=== PATIENT | female | born 1930 | race Asian ===

== ENCOUNTER 2018-09-16 10:58 | Emergency (ER) | payer MEDICARE, OTHER ==
[2018-09-16 12:03] LABS: ADD MAN DIFF? NO
[2018-09-16 12:07] LABS: BASOPHILS % 0.5 % (0.0-2.0); EOSINOPHILS # 0.1 10^3/ul (0.0-0.5); EOSINOPHILS % 1.9 % (0.0-7.0); HEMATOCRIT 39.4 % (37.0-47.0); HEMOGLOBIN 12.9 g/dl (12.0-16.0); LYMPHOCYTES # 1.7 10^3/ul (0.8-2.9); LYMPHOCYTES % 27.9 % (15.0-51.0); MEAN CORPUSCULAR HEMOGLOBIN 30.4 pg (29.0-33.0); MEAN CORPUSCULAR HGB CONC 32.7 g/dl (32.0-37.0); MEAN CORPUSCULAR VOLUME 92.9 fl (82.0-101.0); MONOCYTE # 0.5 10^3/ul (0.3-0.9); MONOCYTES % 7.8 % (0.0-11.0); NEUTROPHIL # 3.8 10^3/ul (1.6-7.5); NEUTROPHILS % 61.6 % (39.0-77.0); PLATELET COUNT 189 10^3/UL (140-415); RED BLOOD COUNT 4.24 10^6/ul (4.20-5.40); RED CELL DISTRIBUTION WIDTH 12.2 % (11.5-14.5)
[2018-09-16 12:07] LABS: WHITE BLOOD COUNT 6.2 10^3/ul (4.8-10.8)
[2018-09-16 12:23] LABS: ALANINE AMINOTRANSFERASE 17 IU/L (13-69); ALBUMIN 4.2 g/dl (3.3-4.9); ALBUMIN/GLOBULIN RATIO 1.31; ALKALINE PHOSPHATASE 49 IU/L (42-121); ANION GAP 14 (5-13); ASPARTATE AMINO TRANSFERASE 16 IU/L (15-46); BILIRUBIN,INDIRECT 0.2 mg/dl (0-1.1); BILIRUBIN,TOTAL 0.2 mg/dl (0.2-1.3); BLOOD UREA NITROGEN 22 mg/dl (7-20); CALCIUM 10.1 mg/dl (8.4-10.2); CARBON DIOXIDE 28 mmol/L (21-31); CHLORIDE 96 mmol/L (97-110); CREATININE 1.02 mg/dl (0.44-1.00); GLUCOSE 140 mg/dl (70-220); POTASSIUM 4.4 mmol/L (3.5-5.1); SODIUM 138 mmol/L (135-144); TOTAL PROTEIN 7.4 g/dl (6.1-8.1)
[2018-09-16] MEDS: ASPIRIN 81 MG TAB PO (12:48)
[2018-09-16] MEDS: NICARDipine HCL 30 MG CAPSULE PO (13:25)
[2018-09-16] MEDS ORDERED: NICARDipine HCL 30 MG CAPSULE PO (14:30)
== END 2018-09-16 14:31 | disposition home or self-care (01) ==
LOC: E/R 10:58
DX: R20.0 Anesthesia of skin (principal); I10 Essential (primary) hypertension; Z79.84 Long term (current) use of oral hypoglycemic drugs
CPT/HCPCS: 36415; 70450; 72125; 80053; 85025; 93005; 99285-25